=== PATIENT | male | born 2000 | race Caucasian/White ===

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

== ENCOUNTER → 2021-03-20 | Outpatient (CLI) | payer BC ==
--- NOTE | 2021-03-20 17:25 | REP ---
INDICATION: CONTUSION. COMPARISON: None. TECHNIQUE: Four views FINDINGS: There is no acute fracture or destructive osseous lesion IMPRESSION: Within normal limits <Electronically signed by Yahir Hernandez > 03/20/21 [id number]
--- NOTE | 2021-03-21 16:37 | REP ---
INDICATION: CONTUSION COMPARISON: None. TECHNIQUE: AP, lateral, bilateral oblique views right hand. FINDINGS: The osseous structures and joint spaces are intact and normal. There is no evidence for acute fracture or dislocation. Surrounding soft tissues are unremarkable. No subcutaneous emphysema or radiodense foreign body. IMPRESSION: . No acute fracture or dislocation. <Electronically signed by Sal Field > 03/21/21 [id number]
== END ==
LOC: M WUC 13:03
PROVIDERS: ATTEND Physician Assistant
DX: S60.211A Contusion of right wrist, initial encounter (principal); S60.221A Contusion of right hand, initial encounter; X58.XXXA Exposure to other specified factors, initial encounter; Y92.89 Other specified places as the place of occurrence of the external cause; Y93.89 Activity, other specified; Y99.8 Other external cause status